=== PATIENT | male | born 1960 | race Caucasian/White ===

== ENCOUNTER 2017-02-17 17:55 | Emergency (ER) | payer OTHER ==
[~2017-02-17] VITALS: Ht 182.9 cm; Wt 74.2 kg
[~2017-02-17 17:55] MED LIST: DIAZ5TAB4 PO; HYDR-3240 PO; MINO50CA PO; MORP30TA3 PO; OMEP-110 PO; OXYC5TAB3 PO; TAMS-11 PO; TRAZ150T68 PO
[2017-02-17 17:57] VITALS: BP 136/99
[2017-02-17] MEDS ORDERED: HYDROcodone/APAP 5/325 TABLET ONE (18:39)
[2017-02-17] MEDS ORDERED: HYDROcodone/APAP 5/325 TABLET PO ONE (19:00)
== END 2017-02-17 19:11 | disposition home or self-care (01) ==
LOC: ED 19:10
DX: G89.11 Acute pain due to trauma (principal); M25.552 Pain in left hip; M25.511 Pain in right shoulder; G89.29 Other chronic pain; Z98.890 Other specified postprocedural states; Y04.0XXA Assault by unarmed brawl or fight, initial encounter; Y93.89 Activity, other specified; Y99.8 Other external cause status; Y92.009 Unspecified place in unspecified non-institutional (private) residence as the place of occurrence of the external cause
CPT/HCPCS: 99284